=== PATIENT | male | born 1970 | race African-American/Black ===

== ENCOUNTER 2018-09-26 11:48 | Emergency (ER) | payer BC ==
[~2018-09-26] VITALS: Ht 175.3 cm; Wt 122.7 kg
[~2018-09-26 11:48] MED LIST: FLONASE NASAL50 MCG; GLIPIZIDE5 MG PO; LIPITOR20 M1 PO; LISINOPRIL10 MG PO; METFORMIN1000 MG PO; RELION SC; ZYRTEC10 MG PO
[2018-09-26 12:44] LABS: HEMATOCRIT 45.2 % (39.0-50.0); IMMATURE GRANULOCYTES 0.2 % (0.0-5.0); MEAN CORPUSCULAR HGB 22.3 pG CALC (26.0-32.0); NEUT# 2.74 thou/uL (1.82-7.42); RED BLOOD COUNT 6.28 mill/uL (4.70-6.10); RED CELL DISTRI WIDTH 17.1 % (11.5-15.5)
[2018-09-26] MEDS ORDERED: LIPITOR40 M1 PO (12:47)
[2018-09-26] MEDS ORDERED: TRAMADOL HCL50 MG PO (12:48)
[2018-09-26] MEDS ORDERED: DIAZEPAM5 MG PO (12:48)
[2018-09-26] MEDS ORDERED: JANUVIA100 MG PO (12:49)
[2018-09-26] MEDS ORDERED: PRANDIN1 MG PO (12:49)
[2018-09-26] MEDS ORDERED: METFORMIN HCL1000 M1 PO (12:57)
[2018-09-26] MEDS ORDERED: FARXIGA10 MG PO (12:57)
[2018-09-26 13:17] LABS: ALBUMIN 4.2 g/dL (3.2-5.0); ALKALINE PHOSPHATASE 82 u/l (38-126); BUN 16 mg/dL (9-20); BUN/CREATININE RATIO 14 (12-20 (CALC)); CARBON DIOXIDE 26 mmol/l (22-30); CHLORIDE 99 mmol/l (95-108); CREATININE 1.1 mg/dL (0.7-1.3); GFR > 60 ML/MIN (>=60 (CALC)); GFR FOR AFR.AMER. > 60 ML/MIN (>=60 (CALC)); LIPASE 104 u/l (23-300); POTASSIUM 4.7 mmol/l (3.5-5.1); SGOT/AST 24 u/l (17-59); TOTAL PROTEIN 7.1 g/dL (6.3-8.2)
[2018-09-26 13:22] LABS: URINE BILIRUBIN - DIPSTICK NEGATIVE (NEGATIVE); URINE BLOOD DIPSTICK NEGATIVE (NEGATIVE); URINE COLOR YELLOW; URINE GLUCOSE - DIPSTICK >=1000 mg/dL (NEGATIVE); URINE KETONE NEGATIVE (NEGATIVE); URINE LEUK ESTERASE NEGATIVE (NEGATIVE); URINE NITRITE - DIPSTICK NEGATIVE (Negative); URINE PROTEIN - DIPSTICK NEGATIVE (NEG-TRACE); URINE SPECIFIC GRAVITY 1.015; URINE UROBILINOGEN - DIPSTICK 0.2 E.U./dL (0.2)
[2018-09-26 13:33] LABS: ANION GAP 16 (6-22 (CALC)); BILIRUBIN, TOTAL 0.5 mg/dL (0.0-1.4); SODIUM 136 mmol/l (137-146)
[2018-09-26] MEDS ORDERED: CYCLOBENZAPR5 MG PO (14:03)
[2018-09-26 14:31] VITALS: BP 136/70
== END 2018-09-26 14:40 | disposition home or self-care (01) | DRG 563 ==
LOC: ED 11:48
PROVIDERS: Family Medicine
DX: S39.011A Strain of muscle, fascia and tendon of abdomen, initial encounter (principal); E11.9 Type 2 diabetes mellitus without complications; I10 Essential (primary) hypertension; X58.XXXA Exposure to other specified factors, initial encounter

== ENCOUNTER 2022-09-10 09:15 | Day surgery (SDC) | payer BC ==
[~2022-09-10] VITALS: Ht 175.3 cm; Wt 112.0 kg
[~2022-09-10 09:15] MED LIST changes: +ATORVASTATIN CA80 MG PO; +CRESTOR20 MG PO; +CYCLOBENZAPR5 MG PO; +DIAZEPAM5 MG PO; +FARXIGA10 MG PO; +JANUVIA100 MG PO; +LIPITOR40 M1 PO; +LISINOPRIL20 M1 PO; +METFORMIN HCL1000 M1 PO; +OZEMPIC2 MG IN; +PRANDIN1 MG PO; +TRAMADOL HCL50 MG PO; +TRESIBA100 UNIT/M IN; +TRULICITY0.75 MG/0.
[2022-09-10 11:02] VITALS: BP 115/66
== END 2022-09-10 11:15 | disposition home or self-care (01) | DRG 951 ==
LOC: ENDO 09:15
PROVIDERS: ATTEND Surgery
PROC: 0DJD8ZZ Inspection of Lower Intestinal Tract, Via Natural or Artificial Opening Endoscopic (ICD-10-PCS; principal; 2022-09-10)
DX: Z12.11 Encounter for screening for malignant neoplasm of colon (principal); K64.8 Other hemorrhoids; I10 Essential (primary) hypertension; E11.9 Type 2 diabetes mellitus without complications; Z79.85 Long-term (current) use of injectable non-insulin antidiabetic drugs